=== PATIENT | female | born 1980 | race African-American/Black ===

== ENCOUNTER 2020-07-16 12:46 | Outpatient (CLI) | payer MEDICARE, MEDICAID ==
[2020-07-16 13:08] LABS: BHCG - Serum Negative (NEGATIVE); Pregs Control Background? CLEAR/WHITE (CLR/WHITE); Pregs Control Bar Appear? YES (CONTROL BAR)
[2020-07-16] MEDS ORDERED: Iopamidol 300 61% 50 ML VIAL FS ONE (14:00)
[2020-07-16] MEDS ORDERED: Lidocaine 1% PF 10 ML AMP ONE (14:00)
[2020-07-16] MEDS ORDERED: EPINEPHrine 1 MG/ML AMP ONE (14:00)
[2020-07-16] MEDS ORDERED: Gadobenate Dimeglumine 529 MG/1 ML (20ML VIAL) ONE (14:00)
[2020-07-16] MEDS ORDERED: Magnevist 469MG/ML 20 ML VIAL ONE (14:06)
--- NOTE | 2020-07-16 15:11 | RAD ---
Arthrogram left shoulder HISTORY: Left shoulder pain. Internal derangement. FINDINGS: After explaining the procedure and answering all questions, the anterior aspect the left sh oulder was prepped and draped in usual sterile fashion. Sterile technique, buffered local anesthesia, fluoroscopic guidance, and an anterior approach were us ed to carefully advance a 19-gauge spinal needle to the joint capsule at the level of the humeral head. A total volume of 8 cc liquid mixture containing normal saline, 1% lidocaine, iodinated contras t, and small amounts of gadolinium and epinephrine were then instilled into the joint capsule under fluoroscopic control. Needle was removed. Patient tolerated the procedure well and was transferred to MRI in good condition . Contrast remained within the joint capsule at the time of the procedure. IMPRESSION : Technically successful arthrogram left shoulder. No evidence of full-thickness rotator cuff tear. MRI pending.
--- NOTE | 2020-07-16 15:20 | MRI ---
EXAM: MR arthrogram left shoulder with intra-articular contrast PROVIDED CLINICAL HISTORY: Pain COMPARISON: None FINDINGS: There is a high-grade partial-thickness undersurface tear involving the supraspinatus tendon involvin g essentially the entire width. There is retraction of the undersurface fibers approximately 2.3 cm. The components of the rotator cuff appear otherwise intact. The long head biceps tendon appears i ntact and normally located. There is signal alteration in the region of the superior labrum that may reflect SLAP tear. The gleno id labrum and glenohumeral articular cartilage appear otherwise preserved. 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 Acromioclavicular joint osteoarthrosis is minimal. There is mild mass e ffect upon the subjacent supraspinatus. No focal concerning regional marrow or muscular signal abnormality apparent. Rotator cuff muscular vo lume appears preserved. IMPRESSION: 1. High-grade partial-thickness undersurface tearing involving the full width of the supraspinatus te ndon. 2. Findings suspicious for SLAP tear. 3. Os acromiale.
== END 2020-07-16 12:47 | disposition home or self-care (01) ==
LOC: RAD 12:46
PROVIDERS: ATTEND Orthopaedic Surgery
DX: M25.512 Pain in left shoulder (principal); M75.122 Complete rotator cuff tear or rupture of left shoulder, not specified as traumatic; M89.212 Other disorders of bone development and growth, left shoulder
CPT/HCPCS: 23350; 84703; A9577; A9579; J0171; J2001; Q9967

== ENCOUNTER 2020-08-14 13:07 | Outpatient (CLI) | payer MEDICARE, MEDICAID, OTHER ==
[2020-08-14 15:44] LABS: #Eosinphils 0.1 10x3/uL (0.0-0.5); #Monocytes 0.3 10x3/uL (0.0-1.1); #Neutrophils 2.8 10x3/uL (1.5-8.4); %Basophils 0.2 % (0.0-2.0); %Eosinophils 2.5 % (0.0-6.0); %Lymphocytes 32.4 % (18.0-47.0); %Monocytes 5.5 % (0.0-10.0); %Neutrophils 59.2 % (40.0-75.0); Hemoglobin 13.2 g/dL (12.0-15.5); Mean Corpuscular HGB CONC 32.8 g/dL (32.0-36.0); Mean Corpuscular Hemoglobin 29.8 pg (27.0-33.0); Mean Platelet Volume 10.2 fl (7.4-10.4); Platelet Count 303 10x3/uL (150-450); RBC Distribution Width 12.2 % (11.5-14.5); Red Blood Cell (RBC) Count 4.43 10x6/uL (3.90-5.03); White Blood Cell (WBC) Count 4.8 10x3/uL (3.5-10.5)
[2020-08-14 15:57] LABS: Anion Gap 14 mmol/L (10-20); BUN (Urea Nitrogen) 10 mg/dL (7.0-18.7); Calc. Creatinine Clearance 0 mL/min (70-130); Calcium 9.1 mg/dL (7.8-10.44); Carbon Dioxide 24 mmol/L (22-29); Chloride 104 mmol/L (98-107); Glucose 98 mg/dL (70-105); Sodium 138 mmol/L (136-145)
[2020-08-15 02:52] LABS: SARS-CoV-2 PCR by NAA Not Detected (NotDetected)
== END 2020-08-14 13:08 | disposition home or self-care (01) ==
LOC: LABBT 13:07
PROVIDERS: ATTEND Orthopaedic Surgery
DX: Z01.818 Encounter for other preprocedural examination (principal); M75.102 Unspecified rotator cuff tear or rupture of left shoulder, not specified as traumatic; Z20.822 Contact with and (suspected) exposure to COVID-19
CPT/HCPCS: 80048; 85025; 93005; U0003; U0005; 87635; 93010

== ENCOUNTER 2020-08-19 07:22 | Day surgery (SDC) | payer MEDICARE, MEDICAID ==
[2020-08-18 11:28] VITALS: BMI 40.3
[2020-08-19] MEDS ORDERED: Midazolam HCl 2 mg/2 ml Vial ONE ×2 (07:55→09:10)
[2020-08-19] MEDS ORDERED: Fentanyl 100 MCG/2 ML VIAL ONE ×3 (07:55→11:35)
[2020-08-19] MEDS ORDERED: Sodium Chloride 0.9% 10 ML ONE ×2 (08:03→08:31)
[2020-08-19] MEDS ORDERED: Ropivacaine 0.5% HCl/PF (150 MG/30 ML VIAL) ONE (08:45)
[2020-08-19] MEDS ORDERED: Lidocaine 1% PF 5 ML VIAL ONE (09:14)
[2020-08-19] MEDS ORDERED: Dexamethasone 20 MG/5 ML VIAL ONE (09:14)
[2020-08-19] MEDS ORDERED: Ondansetron PF 4 MG/2 ML Vial ONE (09:14)
[2020-08-19] MEDS ORDERED: Glycopyrrolate 0.2 MG/ML 5 ML SYRINGE ONE (09:14)
[2020-08-19] MEDS ORDERED: Rocuronium Bromide 10 MG/ML (10ML VIAL) ONE (09:14)
[2020-08-19] MEDS ORDERED: Metoprolol Tartrate 5 MG/5 ML VIAL ONE (09:14)
[2020-08-19] MEDS ORDERED: PROPOFOL 200 MG/20 ML VIAL ONE (09:14)
[2020-08-19] MEDS ORDERED: Lidocaine 1% w/Epinephrine 1:100K 20 ML VIAL ONE (09:45)
[2020-08-19] MEDS ORDERED: Zolpidem Tartrate 5 MG TAB PO PRN (11:15)
[2020-08-19] MEDS ORDERED: HYDROcodone/Acetaminophen 5/325 mg Tablet PO PRN ×2 (11:15)
[2020-08-19] MEDS ORDERED: Promethazine HCl 25 MG/ML VIAL IM PRN (11:15)
[2020-08-19] MEDS ORDERED: traMADol HCl 50 MG TAB PO PRN ×2 (11:15)
[2020-08-19] MEDS ORDERED: Ketorolac Tromethamine 30 MG/ML VIAL IVP PRN (11:15)
[2020-08-19] MEDS ORDERED: Ropivacaine 0.2% 550 ML 550 ML NERVE BLCK SCH (11:15)
[2020-08-19] MEDS ORDERED: Ondansetron PF 4 MG/2 ML Vial IVP PRN (11:15)
[2020-08-19] MEDS ORDERED: Ketorolac Tromethamine 30 MG/ML VIAL ONE (12:02)
[2020-08-19] MEDS ORDERED: hydrALAZINE 20 MG/ML VIAL ONE ×2 (12:50→13:38)
[2020-08-19] MEDS ORDERED: Labetalol HCl 100 MG/20 ML VIAL ONE (13:20)
[2020-08-19] MEDS ORDERED: Acetaminophen 325 MG TAB ONE (15:23)
== END 2020-08-19 16:16 | disposition home or self-care (01) ==
LOC: SDC 07:22
PROVIDERS: ATTEND Orthopaedic Surgery
PROC: 0RHK04Z Insertion of Internal Fixation Device into Left Shoulder Joint, Open Approach (ICD-10-PCS; principal; 2020-08-19)
PROC: 0LQ24ZZ Repair Left Shoulder Tendon, Percutaneous Endoscopic Approach (ICD-10-PCS; 2020-08-19)
PROC: 0LS40ZZ Reposition Left Upper Arm Tendon, Open Approach (ICD-10-PCS; 2020-08-19)
PROC: 3E0T3BZ Introduction of Anesthetic Agent into Peripheral Nerves and Plexi, Percutaneous Approach (ICD-10-PCS; 2020-08-19)
DX: M75.112 Incomplete rotator cuff tear or rupture of left shoulder, not specified as traumatic (principal); M25.312 Other instability, left shoulder; S43.432A Superior glenoid labrum lesion of left shoulder, initial encounter; G89.18 Other acute postprocedural pain; I10 Essential (primary) hypertension; G43.909 Migraine, unspecified, not intractable, without status migrainosus; E66.01 Morbid (severe) obesity due to excess calories; Z68.41 Body mass index [BMI] 40.0-44.9, adult; Z87.891 Personal history of nicotine dependence; Z79.899 Other long term (current) drug therapy
CPT/HCPCS: 23430; 29827; 64416; A4306; C1713 ×2; J0360; J0690; J1100; J1885; J2250; J2405; J2704; J2795; J3010